=== PATIENT | female | born 1980 | race Caucasian/White ===

== ENCOUNTER 2023-11-30 13:58 | Emergency (ER) | payer SELFPAY ==
[~2023-11-30] VITALS: Ht 162.6 cm; Wt 70.3 kg
[2023-11-30 14:08] VITALS: BP 127/81; PULSE 82; RESP 18; TEMP 97.9; O2SAT 98
[2023-11-30] MEDS ORDERED: AUGMENTIN 875MG ONE (14:22)
[2023-11-30] MEDS ORDERED: TORADOL ONE (14:22)
[2023-11-30] MEDS: TORADOL IM STA (14:24)
[2023-11-30] MEDS: AUGMENTIN 875MG PO STA (14:24)
[2023-11-30 15:00] VITALS: BP 109/69; PULSE 77; RESP 18; O2SAT 99
[2023-11-30] MEDS ORDERED: KETO10TA PO (15:00)
[2023-11-30] MEDS ORDERED: AMOX1TAB60 PO (15:00)
== END 2023-11-30 15:04 | disposition home or self-care (01) ==
LOC: ER 13:58
DX: K08.89 Other specified disorders of teeth and supporting structures (principal); Z98.51 Tubal ligation status
CPT/HCPCS: 99283; 96372; 36415; 84703; J1885